=== PATIENT | male | born 1935 | race Caucasian/White ===

== ENCOUNTER → 2016-03-29 11:26 | Outpatient (CLI) | payer MEDICARE, BC ==
[2015-07-20 08:58] VITALS: BMI 32.8
[~2016-03-29 11:26] MED LIST: ALLEGRA ALLERG180 MG PO; ATROVENT 0.06%15 ML; BAYER CHEWABLE81 MG PO; BENICAR40 MG PO; BETAPACE 80 MG80 MG PO; BREO ELLIPTA 11 EACH INH; BYSTOLIC10 MG PO; CITRACAL + D CA1 TAB PO; COUMADIN3 MG PO; COUMADIN4 MG PO; DURAGESIC1 PATCH .4 TRANSDERM; ENDOCET 10-3251 TAB PO; EZFE 200200 MG; FENOFIBRATE134 MG PO; FISH OIL 1,0001 CA1 PO; FLOMAX0.4 MG; FLOVENT DI50 MCG/DIS INH; FLUTICASONE PRO16 GM NASAL; FOLATE0.4 MG; HYDROCODONE-APA1 TAB PO; LASIX20 MG PO; NIACIN100 MG; OMEPRAZOLE CAP 20M PO; PLAVIX75 MG PO; PRAVACHOL20 MG PO; PROSCAR5 MG PO; RESTORIL15 MG PO; SINGULAIR10 MG PO; SYNTHROID50 MCG PO; ZANAFLEX2 M1 PO
== END | disposition home or self-care (01) ==
LOC: D.CT 11:26
DX: M54.5 Low back pain (principal)

== ENCOUNTER → 2016-04-11 08:23 | Outpatient (CLI) | payer MEDICARE, BC ==
[2015-07-20 08:58] VITALS: BMI 32.8
== END | disposition home or self-care (01) ==
LOC: D.NM 08:15
DX: M48.56XA Collapsed vertebra, not elsewhere classified, lumbar region, initial encounter for fracture (principal); M51.36 Other intervertebral disc degeneration, lumbar region

== ENCOUNTER 2016-05-04 07:27 | Outpatient (CLI) | payer MEDICARE, BC ==
[2016-05-04] VITALS (11 sets, daily range): BP systolic 131–152; BP diastolic 71–91; Ht 188 cm; Wt 119.7 kg
[~2016-05-04] VITALS: Ht 188 cm; Wt 119.7 kg
--- NOTE | ~2016-05-04 | HEMODYNAMI ---
PATIENT:KATIE GARCIA JR MEDICAL RECORD: [id number] : 39 LOCATION:[facility] ADMISSION DATE: 05/04/16 Generatedon:05/04/201611:40 Patient name: KATIE GARCIA Patient #: [id number] SSN: : [id number] Date of study: 05/04/2016 Page: Of Hemodynamic Procedure Report Patient Data Patient Demographics Procedure consent was obtained First Name: KATIE Gender: Male Last Name: JOSE Suffix: [facility] Initial: Marge : 1935 Patient #: [id number] Age: 80 year(s) Race: Unknown Additional ID: [id number] Contact details [address]: [address] [place] [address] [place] State: [place] City: [place] Zip code: [address] Past Medical History Allergies Allergen Reaction Date Comments Reported Sulfa drugs 05/04/2016 Admission Admission Data Admission Date: 05/04/2016 Admission Time: 7:27 Weight (lbs.): 265 Weight (kg.): 120.2 Procedure Procedure Types Cath Procedure Peripheral Cath Diagnostic Procedure Cath Peripheral Kyphoplasty Kyphoplasty Lumbar Procedure Description Procedure Date Procedure Date: 05/04/2016 Procedure Start Time: 10:55 Procedure Staff Name Function Christ Baldwin MD Performing Physician Jonh Shirley RT Scrub Margaux Thomas RN Nurse Lilly Recinos RN Nurse Stefany Jaimes RT X Ray Equipment Servicer Stefany Jaimes RT Monitor Procedure Data Cath Procedure Fluoroscopy Diagnostic fluoroscopy Total fluoroscopy Time: 8.4 time: 8.4 min min Diagnostic fluoroscopy Total fluoroscopy dose: 593 dose: 593 mGy mGy Hemodynamics Rest Heart Rate: 62 (bpm) Snapshots Pre Cath Intra NCS Post Cath Vital Signs Time Heart Resp SPO2 NIBP (mmHg) Rhythm Pain Sedation Rate (ipm) (%) Status Level (bpm) 10:12:17 186/118(159) NSR 0 (11) 10(A) , No pain 10:26:58 Measuring NSR 0 (11) 10(A) , No pain 10:27:41 237 19 99 Disturbed NSR 0 (11) 10(A) , No pain 10:30:06 82 35 99 169/112(162) NSR 0 (11) 10(A) , No pain 10:34:20 73 31 100 135/83(112) NSR 0 (11) 10(A) , No pain 10:38:34 75 31 100 118/86(110) NSR 0 (11) 10(A) , No pain 10:42:42 68 23 100 130/82(97) NSR 0 (11) 10(A) , No pain 10:46:54 67 23 100 138/78(109) NSR 0 (11) 10(A) , No pain 10:51:53 82 10 100 Measuring NSR 0 (11) 10(A) , No pain 10:52:48 76 75 100 128/71(98) NSR 0 (11) 10(A) , No pain 10:57:00 67 17 98 102/48(73) NSR 0 (11) 10(A) , No pain 11:01:12 59 25 99 103/46(66) NSR 0 (11) 10(A) , No pain 11:05:22 59 18 98 92/46(72) NSR 0 (11) 10(A) , No pain 11:09:30 69 23 98 84/47(64) NSR 0 (11) 10(A) , No pain 11:13:35 64 37 98 84/43(57) NSR 0 (11) 10(A) , No pain 11:17:43 43 42 97 80/42(57) NSR 0 (11) 10(A) , No pain 11:21:49 59 15 97 78/33(59) NSR 0 (11) 10(A) , No pain 11:25:55 59 15 98 83/27(68) NSR 0 (11) 10(A) , No pain 11:30:03 42 16 98 80/36(57) NSR 0 (11) 10(A) , No pain 11:34:02 98 No Cuff NSR 0 (11) 10(A) , No pain 11:38:02 No Cuff NSR 0 (11) 10(A) , No pain Procedure Log Time Note 9:59:08 Patient Weight : 265 kg 10:01:10 Use device set IR Diagnostic 10:01:52 Sterile Angiographic Pack opened to sterile field. 10:01:53 Bag Decanter opened to sterile field. 10:07:30 Time tracking: Regular hours 10:12:47 Patient received from Outpatients to IR Alert and oriented. Tansferred to table in Prone position. 10:12:54 Warm blankets applied, and nan hugger turned on for patient comfort. 10:12:55 Correct patient and procedure confirmed by team. 10:12:59 Signed procedure consent form obtained from patient. 10:13:22 - 10:13:29 H&P Date Dictated: 05/04/2016 Within 30 days and on chart.. 10:13:30 Pre-procedure instructions explained to patient. 10:13:31 Pre-op teaching completed and patient verbalized understanding. 10:13:33 Family in waiting room. 10:13:35 Patient NPO since Midnight. 10:13:51 Patient allergic to Sulfa drugs 10:13:58 Is the patient allergic to Iodine/contrast media? No. 10:14:01 Is patient on blood thinner?No 10:14:09 - 10:18:20 see anesthesia notes for monitoring of patient during procedure 10:18:30 - 10:25:07 ECG and BP/O2 sat monitors applied to patient. 10:25:09 Vital chart was started 10:25:10 Baseline sample Acquired. 10:25:12 Full Disclosure recording started 10:25:12 - 10:34:57 Katy BONE BX 11GA kit opened to sterile field. 10:34:58 KATY BONE FILLER 10G VER[place]PORT opened to sterile field. 10:34:59 KATY 15/2 VERT AUGMENTATION opened to sterile field. 10:35:00 Katy BONE CEMENT WITH NEEDLE AUTOPLEX Kit opened to sterile field. 10:35:22 See anesthesia records for all sedation, oxygen, vital signs, loc. 10:41:31 - 10:49:29 Physician arrived 10:54:34 --------ALL STOP TIME OUT------ 10:54:35 Final Timeout: patient, procedure, and site verified with staff and physician. All members of the team are in agreement. 10:55:03 Lumbar site verified by team. 10:55:09 Physical assessment completed. ASA score P 3 - A patient with severe systemic disease as per Christ Baldwin MD. 10:55:15 Sedation plan: TIVA Propofol 10:55:22 Procedure started. 11:00:44 Jamshidi needle introduced. 11:03:02 Bone bx needle placed. 11:08:15 Kyphoplasty balloon introduced. 11:14:40 Cement introduced to vertebral body. 11:17:02 Jamshidi needle removed. 11:20:31 Procedure ended.(Physican Out) 11:20:46 Fluoroscopy time 08.40 minutes. 11:20:52 Fluoroscopy dose: 593 mGy 11:20:52 Flurop Dose total: 593 11:21:08 Sharps counted by scrub and verified by R.N. 11:21:10 Procedure and supply charges have been captured, reviewed, submitted an d are correct. 11:40:38 Vital chart was stopped Device Usage Item Name Manufacture Quantity Catalog Hospital Part Current Minim al Lot# / Number Charge Number Stock Stock Serial# Code Sterile [place] 1 [id number] 5 Angiographic Health Pack Bag Decanter Microtek 1 2002S [id number] 5 [employer] Katy BONE [place] 1 [id number] [id number] 5 BX 11GA kit KATY BONE [place] 1 [id number] [id number] 5 FILLER 10G VERTE[place] KATY 15/2 Katy 1 [phone] [id number] 5 VERT AUGMENTATION Katy BONE [place] 1 [id number] 5 CEMENT WITH NEEDLE AUTOPLEX Kit Signature Audit Vicco Stage Time Signature Unsigned Intra-Procedure 05/04/2016 Stefany Jaimes 11:40:35 AM RT(R) Signatures Monitor : Stefany Jaimes RT Signature : Date : Time : [address] [address]
[~2016-05-04 07:27] MED LIST changes: -BREO ELLIPTA 11 EACH INH; -DURAGESIC1 PATCH .4 TRANSDERM; -ENDOCET 10-3251 TAB PO; -FLUTICASONE PRO16 GM NASAL; -ZANAFLEX2 M1 PO
[2016-05-04 08:52] LABS: BASOPHILS 0.1 % (0.0-2.0); EOSINOPHILS 0.8 % (0-7); HEMATOCRIT 36.8 % (42.0-54.0); HEMOGLOBIN 11.7 g/dL (13.5-17.5); IMMATURE GRANULOCYTES 0.3 % (0-5); LYMPHOCYTES 25.7 % (15-50); MCH 25.7 pg (26.0-34.0); MCHC 31.8 g/dL (31.0-37.0); MCV 80.9 fL (80.0-100.0); MEAN PLATELET VOLUME 9.9 fL (7.4-10.4); MONOCYTES 8.5 % (2-11); NEUTROPHILS 64.6 % (40-80); RBC 4.55 10x6/uL (4.20-6.10); RDW 15.8 % (11.5-14.5)
[2016-05-04 08:53] LABS: PLATELET COUNT 260 10x3/uL (130-400)
[2016-05-04] MEDS ORDERED: FLUTICASONE PRO16 GM NASAL (09:00)
[2016-05-04] MEDS ORDERED: BREO ELLIPTA 11 EACH INH (09:03)
[2016-05-04] MEDS ORDERED: DURAGESIC1 PATCH .4 TRANSDERM (09:03)
[2016-05-04 09:04] LABS: INR 1.4 (0.85-1.17)
[2016-05-04 09:05] LABS: APTT 36.5 SECONDS (22.8-39.4)
[2016-05-04] MEDS ORDERED: ENDOCET 10-3251 TAB PO (09:06)
[2016-05-04 09:07] LABS: APPEARANCE CLEAR (CLEAR); BACTERIA FEW /hpf (NONE SEEN); BILIRUBIN NEGATIVE (NEGATIVE); COLOR YELLOW (YELLOW); EPITHELIAL CELLS 0-5 /hpf (0-5); GLUCOSE NEGATIVE (NEGATIVE); KETONE NEGATIVE (NEGATIVE); LEUKOCYTE ESTERASE NEGATIVE (NEGATIVE); NITRITE NEGATIVE (NEGATIVE); PROTEIN NEGATIVE (NEGATIVE); UROBILINOGEN NORMAL (NORMAL); WHITE CELLS - URINE 0-5 /hpf (0-5)
[2016-05-04 09:15] LABS: CALC OSMOLALITY 264 mosm/kg (275-300); CALCIUM 9.7 mg/dL (8.5-10.1); CARBON DIOXIDE 28.9 mmol/L (21.0-32.0); CHLORIDE - SERUM 97 mmol/L (98-107); CREATININE - SERUM 0.8 mg/dL (0.6-1.3); GLUCOSE 103 mg/dL (74-106); POTASSIUM - SERUM 3.9 mmol/L (3.5-5.1); SODIUM 132 mmol/L (136-145); UREA NITROGEN 12 mg/dL (7-18); eGFR NON AFRICAN AMERICAN > 90 mL/min (90-120)
--- NOTE | 2016-05-04 09:21 | NUR ---
0944- SPOKE WITH CARON OROZCO IN SPECIALS OF UA RESULTS. SHE WILL RELAY RESULTS TO DR. MEIER.
--- NOTE | 2016-05-04 12:00 | NUR ---
PATIENT TO ROOM AT THIS TIME. VS STABLE. COMPLAINTS OF PAIN TO BACK. IR NURSE TO SPEAK WITH PHYSICIAN ABOUT PAIN MEDS. FAMILY AT BEDSIDE. CALL LIGHT WITHIN REACH.
--- NOTE | 2016-05-04 12:30 | NUR ---
PATIENT RECIEVED DILAUDID IVP SLOWLY OVER 2 MINUTES. IV INTACT. CALL LIGHT WITHIN REACH. VS STABLE.
--- NOTE | 2016-05-04 14:11 | NUR ---
QUIET IN ROOM DENIES ANY NEEDS AT THIS TIME.
--- NOTE | 2016-05-04 15:00 | NUR ---
PATIENT IN BED WITH IV INTACT. NO COMPLAINTS AT THIS TIME. IV INTACT. CALL LIGHT WITHIN REACH.
--- NOTE | 2016-05-04 16:30 | NUR ---
PATIENT IN BED WITH IV INTACT. FAMILY AT BEDSIDE. CALL LIGHT WITHIN REACH.
--- NOTE | 2016-05-04 18:45 | NUR ---
ASSISTED TO BR. FAMILY AT SIDE. EXPLAINED TO PATIENT TO PULL CORD IN BR WHEN FINISHED. VERBALIZED UNDERSTANDING.
[2016-05-04] MEDS ORDERED: ZANAFLEX2 M1 PO (18:54)
--- NOTE | 2016-05-04 19:00 | NUR ---
PATIENT IN BED WATCHING TV. HOB 30 DEGREES. AAOX4. RR EVEN AND UNLABORED. 0 S/S OF DISTRESS. STATES PAIN IS AN 8/10. REQUESTING PAIN MEDICATION AND VALIUM. EXPLAINED TO PATIENT THAT HE COULD HAVE BOTH AT 2100. IV TO RIGHT WRIST S/L WITH NO REDNESS OR SWELLING. DRESSING TO BACK CDI. B/A ON. FRIEND AT BEDSIDE. SRX2. BED LOW. CALL LIGHT WITHIN REACH.
--- NOTE | 2016-05-04 20:22 | NUR ---
PATIENT ASSISTED BACK TO BED. IV INTACT. NO COMPLAINTS AT THIS TIME. CALL LIGHT WITHIN REACH.
--- NOTE | 2016-05-04 21:10 | NUR ---
ASSISTED PATIENT TO BATHROOM AND BACK TO BED. NORCO AND VALIUM GIVEN. WILL REASSESS.
--- NOTE | 2016-05-04 21:10 | NUR ---
ASSISTED PATIENT TO BATHROOM AND BACK TO BED. PERCOCET AND VALIUM GIVEN. REASSESS.
[2016-05-05] VITALS: BP 128/64
--- NOTE | 2016-05-05 01:00 | NUR ---
PATIENT STATES PAIN IS BACK TO A 10/10. PERCOCET GIVEN.
--- NOTE | 2016-05-05 03:15 | NUR ---
PATIENT SLEEPING WITH NO DISTRESS NOTED. CALL LIGHT WITHIN REACH.
[2016-05-05 04:00] VITALS: BP 144/71
--- NOTE | 2016-05-05 07:15 | NUR ---
REPORT RECEIVED FROM CONDENSER CLEANER NURSE. CALL LIGHT IN REACH.
[2016-05-05 08:09] VITALS: BP 155/79
--- NOTE | 2016-05-05 08:36 | NUR ---
ASSESSMENT COMPLETED. PERCOCET AND VALIUM. IN ROOM. CALL LIGHT IN REACH. WILL CONTINUE WITH PLAN OF CARE.
--- NOTE | 2016-05-05 10:09 | NUR ---
STATES PAIN HAS ONLY DECREASED TO AN 8. MARIN, RADIOLOGY NURSE, IN ROOM ASSESSING PATIENT.
--- NOTE | 2016-05-05 11:59 | NUR ---
PT. AOX4 RESP EVEN AND NONLABORED LUNG SOUNDS CLEAR ON ROOM AIR PT. HAD A KYPHOPLASTY GAUZE AND TEGADERM TO BACK AT THIS TIME. PT TURNED TO RIGHT SIDE AT THIS TIME. IV SALINE LOCK TO RIGHT WRIST PATENT AND INTACT PT. DENIES NEEDS AT THIS TIME.
--- NOTE | 2016-05-05 12:15 | NUR ---
IV DC'D WITH TIP INTACT. DC INSTRUCTIONS EXPLAINED TO PATIENT AND . VERBALIZED UNDERSTANDING. WANTING RX FOR PERCOCET AND MUSCLE RELAXER. SPOKE WITH MARIN. WILL SPEAK WITH DR. MEIER.
--- NOTE | 2016-05-05 14:08 | NUR ---
PERCOCET PO. DC'D TO VEHICLE VIA WC WITH .
== END 2016-05-05 14:08 | disposition home or self-care (01) ==
LOC: D.OPS 07:27 → D.RAD 10:00 → D.OPS 10:00 → D.MS 11:47 → D.OPS 05-05 14:08
PROVIDERS: Specialist
DX: M80.88XA Other osteoporosis with current pathological fracture, vertebra(e), initial encounter for fracture (principal)

== ENCOUNTER → 2016-06-23 14:50 | Outpatient (CLI) | payer MEDICARE, BC ==
[~2016-06-23 14:50] MED LIST changes: +BREO ELLIPTA 11 EACH INH; +DURAGESIC1 PATCH .4 TRANSDERM; +ENDOCET 10-3251 TAB PO; +FLUTICASONE PRO16 GM NASAL; +ZANAFLEX2 M1 PO
== END | disposition home or self-care (01) ==
LOC: D.CT 14:50
DX: M54.16 Radiculopathy, lumbar region (principal)

== ENCOUNTER 2016-07-05 07:39 | Outpatient (CLI) | payer MEDICARE, BC ==
[~2016-07-05] VITALS: Ht 188 cm; Wt 111.4 kg
[2016-07-05 08:16] LABS: BASOPHILS 0.4 % (0-2); EOSINOPHILS 2.1 % (0-7); HEMATOCRIT 37.1 % (42.0-54.0); HEMOGLOBIN 11.7 g/dL (13.5-17.5); IMMATURE GRANULOCYTES 0.4 % (0-5); LYMPHOCYTES 31.2 % (15-50); MCH 26.6 pg (26.0-34.0); MCHC 31.5 g/dL (31.0-37.0); MCV 84.3 fL (80.0-100.0); MEAN PLATELET VOLUME 10.3 fL (7.4-10.4); MONOCYTES 11.9 % (2-11); RDW 17.1 % (11.5-14.5); WBC 5.7 10x3/uL (4.8-10.8)
[2016-07-05 08:19] LABS: PLATELET COUNT 205 10x3/uL (130-400)
[2016-07-05 08:34] LABS: CALC OSMOLALITY 276 mosm/kg (275-300); CALCIUM 9.2 mg/dL (8.5-10.1); CARBON DIOXIDE 28.6 mmol/L (21.0-32.0); CHLORIDE - SERUM 105 mmol/L (98-107); CREATININE - SERUM 0.8 mg/dL (0.6-1.3); GLUCOSE 96 mg/dL (74-106); POTASSIUM - SERUM 3.9 mmol/L (3.5-5.1); SODIUM 139 mmol/L (136-145); UREA NITROGEN 11 mg/dL (7-18); eGFR NON AFRICAN AMERICAN > 90 mL/min (90-120)
[2016-07-05 08:36] LABS: APTT 42.9 SECONDS (22.8-39.4); INR 3.02 (0.85-1.17); PROTIME 31.6 SECONDS (11.6-15.0)
[2016-07-05 08:43] VITALS: BP 154/96; Ht 188 cm; Wt 111.4 kg
[2016-07-05 09:05] LABS: APPEARANCE CLEAR (CLEAR); BILIRUBIN NEGATIVE (NEGATIVE); COLOR YELLOW (YELLOW); GLUCOSE NEGATIVE (NEGATIVE); KETONE NEGATIVE (NEGATIVE); LEUKOCYTE ESTERASE TRACE (NEGATIVE); NITRITE NEGATIVE (NEGATIVE); PROTEIN TRACE mg/dL (NEGATIVE); SPECIFIC GRAVITY 1.015 (1.005-1.020); UROBILINOGEN NORMAL (NORMAL)
[2016-07-05 09:06] LABS: BACTERIA FEW /hpf (NONE SEEN); EPITHELIAL CELLS 0-5 /hpf (0-5); RED CELLS - URINE 0-5 /hpf (0-5); WHITE CELLS - URINE 0-5 /hpf (0-5)
--- NOTE | 2016-07-05 10:34 | NUR ---
0900 CASE HAS BEEN CANCELLED DUE TO ABNORMAL LABS, IV DC'D WITH CATH INTACT. PRESSURE HELD FOR 5 MINUTES, APPLE JUICE SERVED, WATER SERVED. MARIN, RADIOLOGY NURSE FROM DR. BEAVER' OFFICE TO COME SEE PT. PRIOR TO RELEASE. 929 DR MEIER HERE, SPEAKS WITH PT AND PT'S , GIVES INSTRUCTIONS TO CONTINUE HOLDING ASPRIN AND COUMADIN AND TO BE RESCHEDULED FOR THIS SUNDAY, TIME TO BE DETERMINED. 45 PAM ESTRELLA RN HERE GIVES PT. TIME FOR Sunday07/07/16 TO ARRIVE AT 1030 FOR PROCEDURE TIME OF 1300 0950 MARIN FOWLER ROUNDS
--- NOTE | 2016-07-05 10:40 | NUR ---
1020--DISCHARGE INSTRUCTONS GIVEN, PT AND PT'S VERBALIZE UNDERSTANDING. PT OFF UNIT VIA WC. ALFRED REARDON
== END 2016-07-05 10:20 | disposition home or self-care (01) ==
LOC: D.OPS 07:39 → D.RAD 14:00 → D.OPS 14:00
PROVIDERS: Specialist
DX: M48.55XA Collapsed vertebra, not elsewhere classified, thoracolumbar region, initial encounter for fracture (principal); Z01.810 Encounter for preprocedural cardiovascular examination; Z01.811 Encounter for preprocedural respiratory examination; Z01.812 Encounter for preprocedural laboratory examination; Z53.9 Procedure and treatment not carried out, unspecified reason

== ENCOUNTER 2016-07-07 10:21 | Outpatient (CLI) | payer MEDICARE, BC ==
[~2016-07-07] VITALS: Ht 188 cm; Wt 113.6 kg
[2016-07-07] MEDS ORDERED: HYDROCODONE-APA1 TAB PO (11:52)
[2016-07-07 11:54] LABS: BASOPHILS 0.2 % (0-2); EOSINOPHILS 0.6 % (0-7); HEMATOCRIT 39.7 % (42.0-54.0); HEMOGLOBIN 12.3 g/dL (13.5-17.5); IMMATURE GRANULOCYTES 0.2 % (0-5); LYMPHOCYTES 21.8 % (15-50); MCH 25.9 pg (26.0-34.0); MCV 83.8 fL (80.0-100.0); MEAN PLATELET VOLUME 10.5 fL (7.4-10.4); MONOCYTES 8.9 % (2-11); NEUTROPHILS 68.3 % (40-80); PLATELET COUNT 224 10x3/uL (130-400); RBC 4.74 10x6/uL (4.20-6.10); RDW 16.7 % (11.5-14.5); WBC 8.6 10x3/uL (4.8-10.8)
[2016-07-07] MEDS ORDERED: CIPRO500 MG PO (11:56)
[2016-07-07] MEDS ORDERED: ZANAFLEX2 M1 PO (11:56)
[2016-07-07 11:58] VITALS: BP 186/94; Ht 188 cm; Wt 113.6 kg
[2016-07-07 11:59] LABS: AMORPHOUS SEDIMENT >1+ /lpf (NONE SEEN); APPEARANCE CLOUDY (CLEAR); BACTERIA MODERATE /hpf (NONE SEEN); BILIRUBIN NEGATIVE (NEGATIVE); COLOR YELLOW (YELLOW); EPITHELIAL CELLS 0-5 /hpf (0-5); GLUCOSE NEGATIVE (NEGATIVE); GRANULAR CAST OCC /lpf (NONE SEEN); KETONE NEGATIVE (NEGATIVE); LEUKOCYTE ESTERASE TRACE (NEGATIVE); NITRITE NEGATIVE (NEGATIVE); PROTEIN NEGATIVE (NEGATIVE); UROBILINOGEN NORMAL (NORMAL); WHITE CELLS - URINE 0-5 /hpf (0-5)
[2016-07-07 12:00] LABS: APTT 33.2 SECONDS (22.8-39.4); INR 1.55 (0.85-1.17); PROTIME 18.5 SECONDS (11.6-15.0)
[2016-07-07 12:02] LABS: CALC OSMOLALITY 274 mosm/kg (275-300); CALCIUM 9.2 mg/dL (8.5-10.1); CARBON DIOXIDE 28.8 mmol/L (21.0-32.0); CHLORIDE - SERUM 101 mmol/L (98-107); CREATININE - SERUM 0.9 mg/dL (0.6-1.3); GLUCOSE 94 mg/dL (74-106); POTASSIUM - SERUM 3.3 mmol/L (3.5-5.1); SODIUM 138 mmol/L (136-145); UREA NITROGEN 9 mg/dL (7-18); eGFR NON AFRICAN AMERICAN 86 mL/min (90-120)
--- NOTE | 2016-07-07 12:11 | NUR ---
IN AND OUT CATHED PATIENT WITH STERILE TECHNIQUE. URINE SENT. PATIENT REFUSED IV UNTIL COAGS BACK AND URINE RESULTS BACK. CALLED PAM IN SPECIALS AND STATED TO PUT ON HOLD SPECIALS NURSE TALKING TO DR. MEIER. REPORTED URINE RESUKTS PT INR AND POTASSIUM.
--- NOTE | 2016-07-07 12:27 | NUR ---
[address] MEIER AND AWARE OF LAB RESULTS AND THAT URINE WAS IN AND OUT CATHED. SAM FROM RADIOLOGY NURSE CALLED AND STATED WOULD COME AND TALK TO THE PATIENT AND WAS TOLD PER DR. MEIER TO TELL PATIENT IT WAS CANCELLED. INFORMED PATIENT OF THIS AND SAM WOULD BE HERE TO TALK TO PATIENT AND GIVE FURTHER ORDERS ALSO TOLD PATIENT TO HANG TIGHT DR. MEIER WOULD COME AND TALK TO PATIENT LATER. DIET ORDERED.
--- NOTE | 2016-07-07 14:01 | NUR ---
[address] MEIER AND SAM TALKED WITH PATIENT AND PROCEDURE CANCELLED. THEY SAID THAT THEY WOULD GIVE INSTRUCTIONS TO PATIENT AND WHEN TO COME BACK. 1315 TOLERATED LUNCH. 1335 DISCHARGED TO HOME WITH VIA W/C.
== END 2016-07-07 13:35 | disposition home or self-care (01) ==
LOC: D.OPS 10:21 → D.SP 13:00 → D.OPS 13:35
PROVIDERS: Specialist
DX: M48.54XA Collapsed vertebra, not elsewhere classified, thoracic region, initial encounter for fracture (principal); M48.56XA Collapsed vertebra, not elsewhere classified, lumbar region, initial encounter for fracture; N39.0 Urinary tract infection, site not specified; Z01.810 Encounter for preprocedural cardiovascular examination; Z01.811 Encounter for preprocedural respiratory examination; Z01.812 Encounter for preprocedural laboratory examination; Z53.9 Procedure and treatment not carried out, unspecified reason

== ENCOUNTER 2016-07-13 10:41 | Outpatient (CLI) | payer MEDICARE, BC ==
[~2016-07-13] VITALS: Ht 188 cm; Wt 111.4 kg
[~2016-07-13 10:41] MED LIST changes: +CIPRO500 MG PO
[2016-07-13 11:43] VITALS: BP 151/87; Ht 188 cm; Wt 111.4 kg
[2016-07-13] MEDS ORDERED: PROAIR HFA8.5 GM INH (11:52)
[2016-07-13] MEDS ORDERED: ZOLOFT50 MG PO (11:54)
[2016-07-13 13:15] LABS: APPEARANCE SLT CLOUDY (CLEAR); BILIRUBIN NEGATIVE (NEGATIVE); COLOR YELLOW (YELLOW); GLUCOSE NEGATIVE (NEGATIVE); KETONE NEGATIVE (NEGATIVE); LEUKOCYTE ESTERASE NEGATIVE (NEGATIVE); NITRITE NEGATIVE (NEGATIVE); PROTEIN NEGATIVE (NEGATIVE)
[2016-07-13 13:16] LABS: AMORPHOUS SEDIMENT <1+ /lpf (NONE SEEN); BACTERIA MODERATE /hpf (NONE SEEN); EPITHELIAL CELLS 0-5 /hpf (0-5); MUCUS <1+ /lpf (NONE SEEN); WHITE CELLS - URINE OCC /hpf (0-5)
== END 2016-07-13 12:05 | disposition home or self-care (01) ==
LOC: D.OPS 10:41
PROVIDERS: Specialist
DX: N39.0 Urinary tract infection, site not specified (principal)

== ENCOUNTER → 2017-01-23 17:13 | Outpatient (CLI) | payer MEDICARE, BC ==
[2016-07-13 11:43] VITALS: BMI 31.5
[~2017-01-23 17:13] MED LIST changes: +PROAIR HFA8.5 GM INH; +ZOLOFT50 MG PO
[2017-01-23 17:31] LABS: CALC OSMOLALITY 279 mosm/kg (275-300); CARBON DIOXIDE 32.6 mmol/L (21.0-32.0); CHLORIDE - SERUM 102 mmol/L (98-107); CREATININE - SERUM 0.9 mg/dL (0.6-1.3); GLUCOSE 90 mg/dL (74-106); POTASSIUM - SERUM 3.8 mmol/L (3.5-5.1); SODIUM 139 mmol/L (136-145); UREA NITROGEN 17 mg/dL (7-18); eGFR NON AFRICAN AMERICAN 86 mL/min (90-120)
== END | disposition home or self-care (01) ==
LOC: D.LABREF 17:13
PROVIDERS: Internal Medicine Cardiovascular Disease
DX: I10 Essential (primary) hypertension (principal); R60.9 Edema, unspecified

== ENCOUNTER → 2018-08-07 12:43 | Outpatient (CLI) | payer MEDICARE, BC ==
[2016-07-13 11:43] VITALS: BMI 31.5
== END | disposition home or self-care (01) ==
LOC: D.CT 12:43
PROVIDERS: ATTEND Family Medicine
DX: S32.000S Wedge compression fracture of unspecified lumbar vertebra, sequela (principal)